=== PATIENT | female | born 1945 | race Caucasian/White ===

== ENCOUNTER → 2016-08-12 16:51 | Outpatient (CLI) | payer MEDICARE, BC | END | disposition home or self-care (01) | LOC: D.MAMMO 08-06 14:00 → D.US 08-06 15:00 → D.MAMMO 08-10 14:30 → D.US 08-10 15:00 → D.MAMMO 09:00 | DX: Z85.3 Personal history of malignant neoplasm of breast (principal); Z12.39 Encounter for other screening for malignant neoplasm of breast ==

== ENCOUNTER → 2017-10-14 16:44 | Outpatient (CLI) | payer MEDICARE, BC | END | disposition home or self-care (01) | LOC: D.MAMMO 10-08 11:30 → D.US 10-08 13:30 → D.MAMMO 10:00 | DX: Z85.3 Personal history of malignant neoplasm of breast (principal); Z90.11 Acquired absence of right breast and nipple ==

== ENCOUNTER 2018-10-20 09:00 | Outpatient (CLI) | payer MEDICARE, BC | END 2018-10-20 09:30 | disposition home or self-care (01) | LOC: D.MAMMO 09:00 | PROVIDERS: ATTEND Family Medicine | DX: Z85.3 Personal history of malignant neoplasm of breast (principal) ==